=== PATIENT | female | born 1945 | race Caucasian/White ===

== ENCOUNTER 2017-09-11 06:11 | Emergency (ER) | payer MEDICARE, BC ==
[~2017-09-11] VITALS: Ht 165.1 cm; Wt 100.0 kg
[2017-09-11] MEDS ORDERED: HYDROcodone/acetaminophen 10/325mg tab PO ONE (07:50)
[2017-09-11] MEDS ORDERED: HYDR-3965 PO (07:55)
[2017-09-11 08:02] VITALS: BP 186/102
== END 2017-09-11 08:04 | disposition home or self-care (01) ==
LOC: ER 06:12
DX: R07.89 Other chest pain (principal); E66.01 Morbid (severe) obesity due to excess calories
CPT/HCPCS: 71046; 99284

== ENCOUNTER 2022-01-15 12:13 | Emergency (ER) | payer MEDICARE, BC ==
[~2022-01-15] VITALS: Ht 162.6 cm; Wt 90.9 kg
[2022-01-15 12:55] VITALS: BP 175/99
[2022-01-15] MEDS ORDERED: HYDR-3965 PO (14:09)
[2022-01-15] MEDS ORDERED: ketorolac trometh inj. 60 MG/2 ML VIAL IM ONE (14:20)
== END 2022-01-15 15:14 | disposition home or self-care (01) ==
LOC: ER 12:15
DX: M54.2 Cervicalgia (principal); G89.29 Other chronic pain; M54.59 Other low back pain; Z88.1 Allergy status to other antibiotic agents; Z79.899 Other long term (current) drug therapy
CPT/HCPCS: 72040; 96372; 99283; J1885